=== PATIENT | female | born 1975 | race Two or more races ===

== ENCOUNTER 2020-05-14 18:53 | Emergency (ER) | payer OTHER ==
[~2020-05-14] VITALS: Ht 149.9 cm; Wt 68.0 kg
[2020-05-14 19:15] VITALS: BP 135/74
[2020-05-14 19:20] LABS: BILIRUBIN,URINE NEGATIVE (NEG); CLARITY,URINE CLEAR; COLOR,URINE YELLOW; NITRITE,URINE NEGATIVE (NEG); PROTEIN,URINE NEGATIVE (NEG-TRACE); UROBILINOGEN,URINE 0.2 mg/dL (0.2 mg/dL)
[2020-05-14 19:28] LABS: BACTERIA,URINE FEW /HPF (0-FEW)
--- NOTE | 2020-05-14 19:52 | PHYS DOC ---
General Adult EDM: Chief Complaint: VAGINAL PROBLEM HPI: HPI: Patient is a 44 year old female who presents with patient states that she has been having vaginal bleeding for the last 18 days and states that she has been going through 1-2 pads a day. She states that she has not been having any big clots. She states she is starting to feel more fatigued and hands and feet cold. She states she is afraid that she is becoming anemic and wants to be checked. Patient went to a clinic and had a ultrasound of the pelvic on May 10, 2009 was told that she has uterine fibroids, simple unilocular right ovarian cyst. Patient brought a copy of the ultrasound with her. She states that she has an appointment with the specialist next week. Patient denies any pain, nausea, vomiting, back pain, urinary symptoms, abnormal vaginal discharge, sexually-transmitted disease concerns, headache, syncope, dizziness, vision changes, shortness of breath, chest pain, fever. Review of Systems: Review of Systems: Constitutional: Denies fever or chills. [] Eyes: Denies change in visual acuity. [] HENT: Denies nasal congestion or sore throat. [] Respiratory: Denies cough or shortness of breath. [] Cardiovascular: Denies chest pain or edema. [] GI: Denies abdominal pain, nausea, vomiting, bloody stools or diarrhea. [] : Denies dysuria. + Vaginal bleeding [] Musculoskeletal: Denies back pain or joint pain. + Generalized fatigue [] Integument: Denies rash. [] Neurologic: Denies headache, focal weakness or sensory changes. [] Endocrine: Denies polyuria or polydipsia. [] Lymphatic: Denies swollen glands. [] Psychiatric: Denies depression or anxiety. [] Heart Score: Risk Factors: Risk Factors: DM, Current or recent (<one month) smoker, HTN, HLP, family history of CAD, obesity. Risk Scores: Score 0 - 3: 2.5% MACE over next 6 weeks - Discharge Home Score 4 - 6: 20.3% MACE over next 6 weeks - Admit for Clinical Observation Score 7 - 10: 72.7% MACE over next 6 weeks - Early Invasive Strategies Allergies: Allergies: Allergies Coded Allergies Type Severity Reaction Last Updated Verified No Known Drug Allergies 05/14/20 No Physical Exam: PE: Constitutional: Well developed, well nourished, no acute distress, non-toxic appearance. [] HENT: Normocephalic, atraumatic, bilateral external ears normal, oropharynx moist, no oral exudates, nose normal. [] Eyes: PERRLA, EOMI, conjunctiva normal, no discharge. [] Neck: Normal range of motion, no tenderness, supple, no stridor. [] Cardiovascular:Heart rate regular rhythm, no murmur [] Lungs & Thorax: Bilateral breath sounds clear to auscultation [] Abdomen: Bowel sounds normal, soft, no tenderness, no masses, no pulsatile masses. [] Skin: Warm, dry, no erythema, no rash. [] Back: No tenderness, no CVA tenderness. [] Extremities: No tenderness, no cyanosis, no clubbing, ROM intact, no edema. [] Neurologic: Alert and oriented X 3, normal motor function, normal sensory function, no focal deficits noted. [] Psychologic: Affect normal, judgement normal, mood normal. ++ Normal physical exam [] Current Patient Data: Labs: Laboratory Tests Test 05/14/20 19:07 05/14/20 19:14 Urine Collection Type Unknown Urine Color Yellow Urine Clarity Clear Urine pH 8.0 (<5.0-8.0) Urine Specific [place] 1.010 (1.000-1.030) Urine Protein Negative mg/dL (NEG-TRACE) Urine Glucose (UA) Negative mg/dL (NEG) Urine Ketones (Stick) Negative mg/dL (NEG) Urine Blood Large (NEG) Urine Nitrite Negative (NEG) Urine Bilirubin Negative (NEG) Urine Urobilinogen Dipstick 0.2 mg/dL (0.2 mg/dL) Urine Leukocyte Esterase Small (NEG) Urine RBC 11-20 /HPF (0-2) Urine WBC 1-4 /HPF (0-4) Urine Squamous Epithelial Cells Few /LPF Urine Bacteria Few /HPF (0-FEW) POC Urine HCG, Qualitative Hcg negative (Negative) EKG: EKG: [] Radiology/Procedures: Radiology/Procedures: [] Course & Med Decision Making: Course & Med Decision Making Pertinent Labs and Imaging studies reviewed. (See chart for details) See HPI. Ambulatory with a steady gait. Speaks in full complete sentences. Skin pink warm and dry. Vital signs are within normal limits. She is alert and oriented x4. Abdomen is soft and nontender. Vaginal bleeding is scant. I have spoken to Dr Rodríguez's about this patient and the care plan. The copy of the Ultrasound from 05/10 is placed to be put in the patients file. Patient to follow up with the specialty clinic next week as scheduled. [] Isidroon Disclaimer: Dragon Disclaimer: This electronic medical record was generated, in whole or in part, using a voice recognition dictation system. Departure Departure Impression: Primary Impression: Vaginal bleeding, abnormal Disposition: 01 DC HOME SELF CARE/HOMELESS Condition: STABLE Referrals: JOSSELYN GALAVIZ Jr, MD Patient Instructions: Uterine Fibroid, [id number] Additional Instructions: Follow up with specialist as soon as scheduled. If you begin bleeding through more than one pad a hour return tot he ED. SANDOVAL DIALLO APRN May 14, 2020 19:51
[2020-05-14 20:13] LABS: BASO # 0.1 x10^3/uL (0.0-0.2); BASO % 1 % (0-3); EOS # 0.7 x10^3/uL (0.0-0.7); EOS % 6 % (0-3); HEMATOCRIT 37.1 % (36.0-47.0); HEMOGLOBIN 12.5 g/dL (12.0-15.5); LYMPH # 4.7 x10^3/uL (1.0-4.8); LYMPH % 40 % (24-48); MEAN CORPUSCULAR HEMOGLOBIN 29 pg (25-35); MEAN CORPUSCULAR HGB CONC 34 g/dL (31-37); MEAN CORPUSCULAR VOLUME 85 fL (79-100); MONO # 0.9 x10^3/uL (0.0-1.1); MONO % 8 % (0-9); NEUT # 5.2 x10^3/uL (1.8-7.7); NEUT % 45 % (31-73); PLATELET COUNT 511 x10^3/uL (140-400); RED BLOOD COUNT 4.35 x10^6/uL (3.50-5.40); RED CELL DISTRIBUTION WIDTH 13.3 % (11.5-14.5); WHITE BLOOD COUNT 11.6 x10^3/uL (4.0-11.0)
[2020-05-14 20:22] LABS: CALCIUM 9.4 mg/dL (8.5-10.1); CREATININE 0.6 mg/dL (0.6-1.0); GFR 108.1; POTASSIUM 3.8 mmol/L (3.5-5.1)
[2020-05-14 20:34] LABS: ALBUMIN 3.6 g/dL (3.4-5.0); ALBUMIN/GLOBULIN RATIO 0.9 (1.0-1.7); TOTAL BILIRUBIN 0.2 mg/dL (0.2-1.0); TOTAL PROTEIN 7.7 g/dL (6.4-8.2)
== END 2020-05-14 21:12 | disposition home or self-care (01) ==
LOC: ER 18:53
DX: N93.9 Abnormal uterine and vaginal bleeding, unspecified (principal); R53.83 Other fatigue
CPT/HCPCS: 36415; 80053; 81001; 81025; 85025; 87086; 99283